=== PATIENT | female | born 1935 | race Caucasian/White ===

== ENCOUNTER 2016-11-04 13:50 | Emergency (ER) | payer MEDICARE, OTHER ==
[~2016-11-04] VITALS: Ht 160 cm; Wt 50.0 kg
[2016-11-04 14:00] VITALS: BP 195/89; PULSE 100; RESP 16; TEMP 98.5; O2SAT 96
[2016-11-04] MEDS ORDERED: TRAM50TA PO (14:29)
[2016-11-04] MEDS ORDERED: LOMO2.5T PO (14:29)
[2016-11-04] MEDS ORDERED: OXYB5TAB PO (14:29)
[2016-11-04] MEDS ORDERED: LORA-474 PO (14:29)
[2016-11-04] MEDS ORDERED: LISI-515 PO (14:29)
--- NOTE | 2016-11-04 14:56 | PD ---
HPI Chief Complaint: Bite or Sting Time Seen by Provider: 14:48 Travel History International Travel<30 days: No Contact w/Intl Traveler<30days: No Traveled to known affect area: No History of Present Illness HPI 80-year-old female here for evaluation of right foot redness. She reports that yesterday she was walking in her yard with sandals. She felt something poke her in the medial aspect of the right foot. She has developed redness to the skin around the wound since then. The area is painful, aching, constant, worse with palpation. Last tetanus vaccination unknown. No fevers. No other complaints. PFSH Past Medical History Cerebrovascular Accident: Yes (hx stroke) Hypertension: Yes ?: Not Social History Alcohol Use: Yes (OCC) Tobacco Use: Yes (OCC) Substance Use: No Allergies-Medications (Allergen,Severity, Reaction): Coded Allergies: lidocaine (Verified Allergy, Unknown, 11/04/16) Reported Meds & Prescriptions Reported Meds & Active Scripts Active Doxycycline Hyclate 100 Mg Cap 100 Mg PO BID Reported Lomotil (Diphenoxylate-Atropine) 2.5-0.025 Mg Tab 1 Tab PO Q6H PRN Oxybutynin ER 24 HR (Oxybutynin Chloride) 5 Mg Tab 5 Mg PO DAILY Tramadol (Tramadol HCl) 50 Mg Tab 50 Mg PO Q4H PRN Ativan (Lorazepam) 1 Mg Tab 1 Mg PO Q4H PRN Lisinopril 20 Mg Tab 20 Mg PO DAILY Review of Systems Except as stated in HPI: all other systems reviewed are Neg Physical Exam Narrative GENERAL: Well-nourished female in no acute distress SKIN: Warm and dry. Small puncture wound with dried blood noted to the medial aspect the right foot adjacent to the first MTP joint. There is some surrounding cellulitic changes. No induration, fluctuance, drainage or palpable foreign body. HEAD: Atraumatic. Normocephalic. EYES: Pupils equal and round. No scleral icterus. No injection or drainage. ENT: No nasal bleeding or discharge. Mucous membranes pink and moist. NECK: Trachea midline. No JVD. CARDIOVASCULAR: Regular rate and rhythm. No murmur appreciated. RESPIRATORY: No accessory muscle use. Clear to auscultation. Breath sounds equal bilaterally. GASTROINTESTINAL: Abdomen soft, non-tender, nondistended. Hepatic and splenic margins not palpable. MUSCULOSKELETAL: Skin as noted above. Obvious bony disturbance. His pulses are intact. NEUROLOGICAL: Awake and alert. No obvious cranial nerve deficits. Motor grossly within normal limits. Normal speech. Data Data Last Documented VS Vital Signs Date Time Temp Pulse Resp B/P (MAP) Pulse Ox O2 Delivery O2 Flow Rate FiO2 11/04/16 14:00 98.5 100 16 195/89 (124) 96 Orders Orders Tetanus/Diphtheria Tox Adult (Tetanus/Di (11/04/16 15:00) Foot, Limited (2vws) (11/04/16 ) Sulfamet-Trimeth Ds 800-160 Mg (Bactrim (11/04/16 15:00) Cephalexin (Keflex) (11/04/16 15:00) MDM Medical Decision Making Medical Screen Exam Complete: Yes Emergency Medical Condition: Yes Medical Record Reviewed: Yes Differential Diagnosis Cellulitis, retained foreign body, septic arthritis Narrative Course Examination is consistent with cellulitis to the right foot, likely secondary to puncture wound on the medial aspect of the right foot. X-ray imaging will be obtained. Tetanus status updated. Bactrim and Keflex initiated. X-ray imaging reveals no acute abnormality is. The patient will be discharged with doxycycline to minimize drug-drug interactions with her other medications. Discussed signs and symptoms that warrant return to the emergency room. She is stable for discharge. Diagnosis Primary Impression: Cellulitis of right foot Additional Instructions: Take antibiotics as prescribed. Warm compresses several times a day 10-15 minutes at a time. Return for any evidence of worsening infection. Med/Other Pt SpecificInfo: Prescription(s) given Scripts Doxycycline Hyclate (Doxycycline Hyclate) 100 Mg Cap 100 MG PO BID for Infection, #20 CAP 0 Refills Prov: Linda Cooney MD 11/04/16 Disposition: 01 DISCHARGE HOME Condition: Stable Abdon Tyson Nov 04, 2016 14:56
[2016-11-04] MEDS ORDERED: CEPHALEXIN MONOHYDRATE 500 MG CAP PO ONE (15:00)
[2016-11-04] MEDS ORDERED: TETANUS/DIPHTHERIA TOXOID ADULT 0.5 ML VIAL IM ONE (15:00)
[2016-11-04] MEDS ORDERED: SULFAMETHOXAZOLE-TRIMETHOPRIM DS 800-160 MG TAB PO ONE (15:00)
--- NOTE | 2016-11-04 15:59 | RADRPT ---
EXAM DATE/TIME: 11/04/2016 15:44 [facility] COMPARISON: No previous studies available for comparison. INDICATIONS : Pain, possible insect bite. MEDICAL HISTORY : Arthritis. Stroke. Previous broken 5th digit of right foot. SURGICAL HISTORY : None. 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 No significant radha ny erosive change or acute bony fracture. Remaining joint spaces appear maintained. No significant so ft tissue emphysema or radiopaque foreign body. CONCLUSION: 1. No acute fracture or dislocation. 2. No significant soft tissue emphysema or radiopaque foreign body. Marco Antonio Lewis MD on November 04, 2016 at 15:56 Board Certified Radiologist. This report was verified electronically.
[2016-11-04] MEDS ORDERED: DOXY100C PO (16:02)
== END 2016-11-04 16:25 | disposition home or self-care (01) ==
LOC: PHEFT 13:50
DX: L03.115 Cellulitis of right lower limb (principal); I10 Essential (primary) hypertension; Z23 Encounter for immunization; Z72.0 Tobacco use; Z86.79 Personal history of other diseases of the circulatory system
CPT/HCPCS: 73620; 90471; 90714